=== PATIENT | female | born 1965 | race Caucasian/White ===

== ENCOUNTER 2023-12-17 20:12 | Emergency (ER) | payer MEDICAID ==
[~2023-12-17] VITALS: Ht 167.6 cm; Wt 84.2 kg
[2023-12-17] MEDS ORDERED: BUPR200T2 PO (21:36)
[2023-12-17] MEDS ORDERED: IBUP-862 PO (21:36)
[2023-12-17 21:58] VITALS: BP 106/60; PULSE 60; RESP 16; TEMP 98; O2SAT 98
== END 2023-12-17 22:01 | disposition home or self-care (01) ==
LOC: ER 20:13
DX: M77.31 Calcaneal spur, right foot (principal); Z59.00 Homelessness unspecified
CPT/HCPCS: 73630; 99283